=== PATIENT | female | born 1970 | race Caucasian/White ===

== ENCOUNTER → 2017-03-29 | Outpatient (REF) | payer OTHER ==
[~2017-03-29] MED LIST: BIOT5TAB3 PO; CALC500C8 PO; FLIN1CHW PO; IRON50TA PO; K-TA1TAB PO; MAGN1TAB25 PO; VITA100066 PO; VITA250L PO
== END ==
LOC: M LAB REF 18:13
PROVIDERS: ATTEND Nurse Practitioner Family
DX: Z04.41 Encounter for examination and observation following alleged adult rape (principal)

== ENCOUNTER 2017-04-02 18:37 | Emergency (ER) | payer OTHER ==
[~2017-04-02] VITALS: Ht 157.5 cm; Wt 76.8 kg
[2017-04-02] MEDS ORDERED: FLIN1CHW PO (18:53)
[2017-04-02] MEDS ORDERED: IRON50TA PO (18:53)
[2017-04-02] MEDS ORDERED: MAGN1TAB25 PO (18:53)
[2017-04-02] MEDS ORDERED: CALC500C8 PO (18:53)
[2017-04-02] MEDS ORDERED: VITA250L PO (18:53)
[2017-04-02] MEDS ORDERED: K-TA1TAB PO (18:53)
[2017-04-02] MEDS ORDERED: BIOT5TAB3 PO (18:53)
[2017-04-02] MEDS ORDERED: VITA100066 PO (18:53)
[2017-04-02 23:54] VITALS: BP 118/69
== END 2017-04-03 00:40 | disposition left against medical advice (07) ==
LOC: M ED 18:37
DX: Z53.29 Procedure and treatment not carried out because of patient's decision for other reasons (principal)

== ENCOUNTER → 2019-01-20 | Outpatient (REF) | payer BC ==
[~2019-01-20] MED LIST changes: -MAGN1TAB25 PO; +MAGN1TAB26 PO
[2019-01-21 15:00] LABS: FOLLICLE STIMULATING HORMONE 7.6 mIU/mL; LUTEINIZING HORMONE 4.7 mIU/mL
== END ==
LOC: M LAB REF 15:48
PROVIDERS: ATTEND Nurse Practitioner Family
DX: N76.0 Acute vaginitis (principal)

== ENCOUNTER → 2019-12-16 | Outpatient (REF) | payer BC ==
[2020-02-09 03:47] LABS: FOLATE > 24.0 NG/ML; VITAMIN B12 LEVEL 945 PG/ML
== END ==
LOC: M LAB REF 10:37
PROVIDERS: ATTEND Internal Medicine
DX: Z98.84 Bariatric surgery status (principal)

== ENCOUNTER → 2020-06-15 | Outpatient (REF) | payer BC ==
[2020-06-15 17:01] LABS: PERCENT SATURATION 24.8 % (13.2-45.0)
== END ==
LOC: M LAB REF 16:14
PROVIDERS: ATTEND Registered Nurse
DX: D50.9 Iron deficiency anemia, unspecified (principal); R23.3 Spontaneous ecchymoses

== ENCOUNTER → 2022-06-27 | Outpatient (CLI) | payer OTHER ==
[2022-06-27 11:04] LABS: BASO % 0.4 % (0.0-1.0); EOS # 0.1 10^3/uL (0.0-0.5); EOS % 2.6 % (0.0-3.0); HEMATOCRIT 40.3 % (36.0-47.0); HEMOGLOBIN 12.9 g/dl (12.0-15.5); LYMPH # 1.9 10^3/uL (1.5-5.0); LYMPH % 40.5 % (24.0-44.0); MEAN CORPUSCULAR HEMOGLOBIN 28.6 pg (27.0-33.0); MEAN CORPUSCULAR VOLUME 89.4 fl (80.0-96.0); MONO # 0.4 10^3/uL (0.0-0.8); MONO % 9.5 % (2.0-8.0); NEUTROPHILS # 2.2 10^3/uL (1.5-8.5); NEUTROPHILS % 46.8 % (36.0-66.0); PLATELET COUNT, AUTOMATED 272 10^3/uL (150-450); RED BLOOD COUNT 4.51 10^6/uL (4.00-5.40); WHITE BLOOD COUNT 4.6 10^3/uL (4.0-10.0)
[2022-06-27 11:32] LABS: TOTAL IRON BINDING CAPACITY 390 UG/DL (250-425)
[2022-06-27 11:33] LABS: ALBUMIN 3.9 G/DL (3.2-5.2); ALKALINE PHOSPHATASE 94 U/L (46-116); ALT/SGPT 18 U/L (7.0-40); AST/SGOT 25 U/L (<34); BILIRUBIN,TOTAL 0.5 MG/DL (0.3-1.2); BLOOD UREA NITROGEN 13 MG/DL (9-23); CALCIUM LEVEL 9.3 MG/DL (8.5-10.1); CARBON DIOXIDE LEVEL 32 MMOL/L (20-31); CHLORIDE LEVEL 106 MMOL/L (98-107); CREATININE FOR GFR 0.76 MG/DL (0.55-1.30); GLOMERULAR FILTRATION RATE > 60.0 (>51); GLUCOSE, FASTING 67 MG/DL (60-100); IRON (FE) 83 UG/DL (50-170); PERCENT SATURATION 21.3 % (13.2-45.0); POTASSIUM SERUM 4.2 MMOL/L (3.5-5.1); SODIUM LEVEL 142 MMOL/L (136-145); TOTAL PROTEIN 7.3 G/DL (5.7-8.2)
[2022-06-27 11:38] LABS: TOTAL 25(OH) VITAMIN D 25.4 NG/ML (20.0-100.0); VITAMIN B12 LEVEL 875 PG/ML (211-911)
[2022-06-27 12:02] LABS: HIV 1&2 SCREEN CENTAUR NEGATIVE (NEGATIVE)
== END ==
LOC: M LAB 09:54
PROVIDERS: ATTEND Nurse Practitioner
DX: R53.83 Other fatigue (principal); Z98.84 Bariatric surgery status

== ENCOUNTER 2022-08-04 10:49 | Emergency (ER) | payer OTHER ==
[~2022-08-04] VITALS: Ht 157.5 cm; Wt 86.4 kg
[2022-08-04 11:39] LABS: BASO % 0.4 % (0.0-1.0); EOS # 0.2 10^3/uL (0.0-0.5); EOS % 2.7 % (0.0-3.0); HEMOGLOBIN 12.5 g/dl (12.0-15.5); LYMPH # 1.9 10^3/uL (1.5-5.0); LYMPH % 34.7 % (24.0-44.0); MEAN CORPUSCULAR HEMOGLOBIN 28.2 pg (27.0-33.0); MEAN CORPUSCULAR HGB CONC 32.1 g/dl (32.0-36.5); MEAN CORPUSCULAR VOLUME 87.8 fl (80.0-96.0); MONO # 0.4 10^3/uL (0.0-0.8); MONO % 7.6 % (2.0-8.0); NEUTROPHILS % 54.4 % (36.0-66.0); PLATELET COUNT, AUTOMATED 258 10^3/uL (150-450); RED BLOOD COUNT 4.44 10^6/uL (4.00-5.40); WHITE BLOOD COUNT 5.5 10^3/uL (4.0-10.0)
[2022-08-04 11:50] LABS: INR 0.96
[2022-08-04 11:56] LABS: CK-MB VALUE MASS 1.2 NG/ML (<3.6)
[2022-08-04 11:57] LABS: LIPASE 52 U/L (12-53)
[2022-08-04 11:59] LABS: CPK CREATINE PHOSPHOKINASE 296 U/L (34-145)
[2022-08-04 12:00] LABS: ALBUMIN 3.9 G/DL (3.2-5.2); ALKALINE PHOSPHATASE 100 U/L (46-116); ALT/SGPT 20 U/L (7.0-40); AST/SGOT 23 U/L (<34); BILIRUBIN,DIRECT 0.2 MG/DL (<0.4); BILIRUBIN,TOTAL 0.5 MG/DL (0.3-1.2); BLOOD UREA NITROGEN 10 MG/DL (9-23); CALCIUM LEVEL 8.9 MG/DL (8.5-10.1); CARBON DIOXIDE LEVEL 30 MMOL/L (20-31); CHLORIDE LEVEL 107 MMOL/L (98-107); CREATININE FOR GFR 0.77 MG/DL (0.55-1.30); FREE T4 1.02 NG/DL (0.89-1.76); GLOMERULAR FILTRATION RATE > 60.0 (>51); GLUCOSE, FASTING 75 MG/DL (60-100); POTASSIUM SERUM 3.8 MMOL/L (3.5-5.1); SODIUM LEVEL 142 MMOL/L (136-145); THYROID STIMULATING HORMONE 1.618 uIU/ML (0.55-4.78); TOTAL PROTEIN 7.2 G/DL (5.7-8.2)
[2022-08-04] MEDS ORDERED: ISOVUE-370 76% 100ML VIAL As Ordered ONE (12:10)
[2022-08-04 13:14] LABS: CPK CREATINE PHOSPHOKINASE 258 U/L (34-145); MB/CK RELATIVE INDEX 0.38 (< OR =4)
[2022-08-04 13:15] VITALS: BP 143/92
== END 2022-08-04 14:04 | disposition home or self-care (01) ==
LOC: M ED 10:49
DX: R07.9 Chest pain, unspecified (principal); K86.9 Disease of pancreas, unspecified; I10 Essential (primary) hypertension; M54.50 Low back pain, unspecified; Z98.84 Bariatric surgery status; Z88.6 Allergy status to analgesic agent; Z88.5 Allergy status to narcotic agent; Z88.8 Allergy status to other drugs, medicaments and biological substances; Z79.899 Other long term (current) drug therapy
CPT/HCPCS: 36415; 71045; 71275; 80047; 80048; 80076; 81001; 82550; 82553; 83690; 84439; 84443; 84484; 85025; 85610; 85730; 87088; 87186; 93005; 93041; 94760; 99285; Q9967

== ENCOUNTER 2022-08-27 18:30 | Emergency (ER) | payer OTHER ==
[~2022-08-27] VITALS: Ht 157.5 cm; Wt 86.4 kg
[~2022-08-27 18:30] MED LIST changes: +CALC500C16 PO; +FERR325T3 PO; +VITA100093 PO
[2022-08-27] MEDS ORDERED: NS 1,000 ML IV ONE (19:10)
[2022-08-27 19:22] LABS: BASO % 0.5 % (0.0-1.0); EOS # 0.1 10^3/uL (0.0-0.5); EOS % 2.3 % (0.0-3.0); HEMATOCRIT 36.8 % (36.0-47.0); LYMPH # 2.6 10^3/uL (1.5-5.0); LYMPH % 43.7 % (24.0-44.0); MEAN CORPUSCULAR HEMOGLOBIN 28.6 pg (27.0-33.0); MEAN CORPUSCULAR HGB CONC 32.6 g/dl (32.0-36.5); MEAN CORPUSCULAR VOLUME 87.8 fl (80.0-96.0); MONO # 0.5 10^3/uL (0.0-0.8); MONO % 7.6 % (2.0-8.0); NEUTROPHILS # 2.8 10^3/uL (1.5-8.5); NEUTROPHILS % 45.7 % (36.0-66.0); PLATELET COUNT, AUTOMATED 292 10^3/uL (150-450); RED BLOOD COUNT 4.19 10^6/uL (4.00-5.40)
[2022-08-27 19:30] LABS: CK-MB VALUE MASS < 1.0 NG/ML (<3.6); LIPASE 51 U/L (12-53)
[2022-08-27 19:31] LABS: AMYLASE 72 U/L (30-118); CPK CREATINE PHOSPHOKINASE 150 U/L (34-145); MB/CK RELATIVE INDEX 0.66 (< OR =4)
[2022-08-27 19:32] LABS: ALBUMIN 3.9 G/DL (3.2-5.2); ALKALINE PHOSPHATASE 96 U/L (46-116); ALT/SGPT 16 U/L (7.0-40); AST/SGOT 18 U/L (<34); BILIRUBIN,DIRECT < 0.1 MG/DL (<0.4); BILIRUBIN,TOTAL 0.2 MG/DL (0.3-1.2); BLOOD UREA NITROGEN 11 MG/DL (9-23); CALCIUM LEVEL 8.9 MG/DL (8.5-10.1); CARBON DIOXIDE LEVEL 28 MMOL/L (20-31); CHLORIDE LEVEL 109 MMOL/L (98-107); CREATININE FOR GFR 0.93 MG/DL (0.55-1.30); GLOMERULAR FILTRATION RATE > 60.0 (>51); GLUCOSE, FASTING 90 MG/DL (60-100); POTASSIUM SERUM 3.9 MMOL/L (3.5-5.1); SODIUM LEVEL 142 MMOL/L (136-145); TOTAL PROTEIN 7.2 G/DL (5.7-8.2)
[2022-08-27 19:55] LABS: RSV AMPLIFICATION NEGATIVE (NEGATIVE)
[2022-08-27] MEDS ORDERED: ISOVUE-370 76% 100ML VIAL As Ordered ONE (20:11)
[2022-08-27 22:00] VITALS: BP 141/81
== END 2022-08-27 22:15 | disposition home or self-care (01) ==
LOC: M ED 18:30
DX: R10.9 Unspecified abdominal pain (principal); R53.83 Other fatigue; K86.9 Disease of pancreas, unspecified; Z98.84 Bariatric surgery status; Z88.5 Allergy status to narcotic agent; Z88.6 Allergy status to analgesic agent; Z79.899 Other long term (current) drug therapy
CPT/HCPCS: 36415; 71260; 74177; 80048; 80076; 82150; 82550; 82553; 83690; 84484; 85025; 87631; 93005; 93041; 99284; Q9967

== ENCOUNTER → 2022-11-06 | Outpatient (CLI) | payer OTHER ==
[~2022-11-06] MED LIST changes: +PROHANCE 279.3MG/ML 15ML VIAL As Ordered ONE; +PROHANCE 279.3MG/ML 5ML VIAL As Ordered ONE
== END ==
LOC: M RAD 07:51
PROVIDERS: ATTEND Internal Medicine Hematology & Oncology
DX: D49.0 Neoplasm of unspecified behavior of digestive system (principal)
CPT/HCPCS: 74183; A9576

== ENCOUNTER 2022-11-12 14:18 | Emergency (ER) | payer OTHER ==
[~2022-11-12] VITALS: Ht 157.5 cm; Wt 87.0 kg
[~2022-11-12 14:18] MED LIST changes: -PROHANCE 279.3MG/ML 15ML VIAL As Ordered ONE; -PROHANCE 279.3MG/ML 5ML VIAL As Ordered ONE
[2022-11-12 15:27] LABS: BASO % 0.2 % (0.0-1.0); EOS # 0.1 10^3/uL (0.0-0.5); EOS % 1.9 % (0.0-3.0); HEMATOCRIT 37.2 % (36.0-47.0); LYMPH # 2.1 10^3/uL (1.5-5.0); LYMPH % 36.4 % (24.0-44.0); MEAN CORPUSCULAR HEMOGLOBIN 28.4 pg (27.0-33.0); MEAN CORPUSCULAR HGB CONC 32.3 g/dl (32.0-36.5); MEAN CORPUSCULAR VOLUME 88.2 fl (80.0-96.0); MONO # 0.5 10^3/uL (0.0-0.8); MONO % 7.7 % (2.0-8.0); NEUTROPHILS # 3.2 10^3/uL (1.5-8.5); NEUTROPHILS % 53.6 % (36.0-66.0); PLATELET COUNT, AUTOMATED 288 10^3/uL (150-450); RED BLOOD COUNT 4.22 10^6/uL (4.00-5.40); WHITE BLOOD COUNT 5.9 10^3/uL (4.0-10.0)
[2022-11-12 15:34] LABS: BLOOD UREA NITROGEN 7 MG/DL (9-23); CALCIUM LEVEL 8.8 MG/DL (8.5-10.1); CARBON DIOXIDE LEVEL 28 MMOL/L (20-31); CHLORIDE LEVEL 107 MMOL/L (98-107); CREATININE FOR GFR 0.76 MG/DL (0.55-1.30); GLOMERULAR FILTRATION RATE > 60.0 (>51); GLUCOSE, FASTING 86 MG/DL (60-100); POTASSIUM SERUM 4.3 MMOL/L (3.5-5.1); SODIUM LEVEL 143 MMOL/L (136-145)
[2022-11-12] MEDS ORDERED: DICY-61 PO (16:28)
[2022-11-12 16:35] VITALS: BP 137/92; TEMP 97.5; O2SAT 99
== END 2022-11-12 16:53 | disposition home or self-care (01) ==
LOC: M ED 14:18
DX: R10.9 Unspecified abdominal pain (principal); N28.1 Cyst of kidney, acquired; K86.2 Cyst of pancreas; Z79.899 Other long term (current) drug therapy; Z88.8 Allergy status to other drugs, medicaments and biological substances

== ENCOUNTER → 2023-03-21 | Outpatient (REF) ==
[~2023-03-21] MED LIST changes: +DICY-61 PO
== END ==
LOC: M PLAIMG 13:15
PROVIDERS: ATTEND Internal Medicine
DX: M47.816 Spondylosis without myelopathy or radiculopathy, lumbar region (principal); M47.812 Spondylosis without myelopathy or radiculopathy, cervical region; M54.9 Dorsalgia, unspecified